=== PATIENT | female | born 1990 | race Caucasian/White ===

== ENCOUNTER 2018-05-24 06:42 | Emergency (ER) | payer OTHER ==
[~2018-05-24] VITALS: Ht 157.5 cm; Wt 52.2 kg
[2018-05-24] MEDS ORDERED: IV NORMAL SALINE 1000 ML BAG IV ONE (07:30)
[2018-05-24] MEDS ORDERED: ONDANSETRON 4 MG/2 ML VIAL IV ONE (07:30)
--- NOTE | 2018-05-24 07:30 | NUR ---
ATTEMPTED ON LT AC, UNABLE TO START HL. PT REFUSED TO HAVE MORE ATTEMPTS. NOTIFIED.
[2018-05-24] MEDS ORDERED: ONDANSETRON 4 MG/2 ML VIAL ONE (07:40)
[2018-05-24] MEDS ORDERED: ONDANSETRON 4 MG/2 ML VIAL IM ONE (07:45)
--- NOTE | 2018-05-24 08:02 | NUR ---
PT STATES FEELING BETTER.
[2018-05-24 08:30] LABS: *BILIRUBIN,URIN 1+ (NEGATIVE); *BLOOD, URINE NEGATIVE (NEGATIVE); *CLARITY,URINE CLEAR (CLEAR); *COLOR,URINE DARK YELLOW (YELLOW); *KETONES,URINE 1+ (NEGATIVE); *UROBILINOGEN,URINE 0.2 E.U./dl (NORMAL); LEUKOCYTE ESTERASE ,URINE NEGATIVE (NEGATIVE); NITRITE, URINE NEGATIVE (NEGATIVE); UGLUCOSE NEGATIVE (NEGATIVE)
[2018-05-24 08:34] LABS: BACTERIA,URINE NONE SEEN /HPF (NONE SEEN); RBC,URINE 0-3 /HPF (0-3); SQUAMOUS EPITHELIAL CELL,UR MANY /HPF (NONE SEEN); WBC,URINE 0-3 /HPF (0-3)
[2018-05-24 08:35] LABS: *URINE HCG, QUAL NEGATIVE (NEGATIVE); MUCUS,URINE FEW /LPF (0-FEW)
--- NOTE | 2018-05-24 08:42 | NUR ---
PT ABLE TO TOLORARE PO INTAKE, DENIES N/V.
[2018-05-24 10:11] VITALS: BP 112/70
--- NOTE | 2018-05-24 10:11 | NUR ---
Patient discharged to home in stable conditon. Written and verbal after care instructions given. Patient verbalizes understanding of instructions.
[2018-05-26 12:07] LABS: *GC NAA Negative (Negative); *TRIC.VAG. NAA Negative (Negative)
== END 2018-05-24 10:12 | disposition home or self-care (01) ==
LOC: ER 06:44
DX: N76.0 Acute vaginitis (principal); F17.200 Nicotine dependence, unspecified, uncomplicated; F11.10 Opioid abuse, uncomplicated; F15.10 Other stimulant abuse, uncomplicated; F14.10 Cocaine abuse, uncomplicated; Z88.2 Allergy status to sulfonamides
CPT/HCPCS: 81001; 84703; 87210; 87491; 96372; 99283; J2405; A4663; J7030

== ENCOUNTER 2018-05-28 22:09 | Emergency (ER) | payer OTHER ==
[~2018-05-28] VITALS: Ht 157.5 cm; Wt 52.2 kg
[2018-05-28] MEDS ORDERED: LOPERAMIDE HCL 2 MG CAPSULE PO ONE (23:30)
[2018-05-28] MEDS ORDERED: ONDANSETRON ODT 4 MG TAB.RAPDIS SL ONE (23:30)
[2018-05-28] MEDS ORDERED: LOPERAMIDE HCL 2 MG CAPSULE ONE (23:37)
[2018-05-28] MEDS ORDERED: ONDANSETRON ODT 4 MG TAB.RAPDIS ONE (23:37)
--- NOTE | 2018-05-28 23:44 | NUR ---
Patient discharged to home in stable conditon. Written and verbal after care instructions given. Patient verbalizes understanding of instructions. Patient ambulated with stable gait.
[2018-05-28 23:46] VITALS: BP 105/75
== END 2018-05-28 23:47 | disposition home or self-care (01) ==
LOC: ER 22:11
DX: A08.4 Viral intestinal infection, unspecified (principal); F17.200 Nicotine dependence, unspecified, uncomplicated; F11.10 Opioid abuse, uncomplicated; F14.10 Cocaine abuse, uncomplicated; F15.10 Other stimulant abuse, uncomplicated; Z88.2 Allergy status to sulfonamides; Z88.8 Allergy status to other drugs, medicaments and biological substances
CPT/HCPCS: A4663; Q0162

== ENCOUNTER 2019-01-27 06:21 | Emergency (ER) | payer OTHER ==
[~2019-01-27] VITALS: Ht 157.5 cm; Wt 52.2 kg
[2019-01-27 06:39] LABS: *BILIRUBIN,URIN NEGATIVE (NEGATIVE); *CLARITY,URINE CLOUDY (CLEAR); *COLOR,URINE YELLOW (YELLOW); *KETONES,URINE NEGATIVE (NEGATIVE); *UROBILINOGEN,URINE 0.2 E.U./dl (NORMAL); LEUKOCYTE ESTERASE ,URINE 1+ (NEGATIVE); NITRITE, URINE POSITIVE (NEGATIVE); UGLUCOSE NEGATIVE (NEGATIVE)
[2019-01-27 06:40] LABS: *BLOOD, URINE TRACE (NEGATIVE); *URINE HCG, QUAL NEGATIVE (NEGATIVE)
[2019-01-27 06:48] LABS: BACTERIA,URINE MANY /HPF (NONE SEEN); SQUAMOUS EPITHELIAL CELL,UR FEW /HPF (NONE SEEN); WBC,URINE TNTC /HPF (0-3)
[2019-01-27] MEDS ORDERED: CEphaleXIN 500 MG CAPSULE ONE (07:14)
[2019-01-27] MEDS ORDERED: ACETAMINOPHEN ES 500 MG TABLET ONE (07:14)
[2019-01-27] MEDS ORDERED: ONDANSETRON ODT 4 MG TAB.RAPDIS ONE (07:14)
[2019-01-27] MEDS ORDERED: PHENAZOPYRIDINE HCL 100 MG TABLET ONE (07:15)
[2019-01-27] MEDS: ONDANSETRON ODT 4 MG TAB.RAPDIS SL ONE (07:17)
[2019-01-27] MEDS: CEphaleXIN 500 MG CAPSULE PO ONE (07:17)
[2019-01-27] MEDS: PHENAZOPYRIDINE HCL 100 MG TABLET PO ONE (07:17)
[2019-01-27] MEDS: ACETAMINOPHEN ES 500 MG TABLET PO ONE (07:17)
[2019-01-27 07:19] VITALS: BP 121/70
--- NOTE | 2019-01-27 07:19 | NUR ---
Patient discharged to home in stable conditon. Written and verbal after care instructions given. Patient verbalizes understanding of instructions. Denies being homeless. All belongings with patient. Ambulated with stable gait.
[2019-01-27] MEDS ORDERED: MORPHINE SULFATE 4 MG/1 ML DISP.SYRIN IV ONE (07:45)
[2019-01-27] MEDS ORDERED: IV NORMAL SALINE 1000 ML BAG IV ONE (07:45)
== END 2019-01-27 07:24 | disposition home or self-care (01) ==
LOC: ER 06:24
DX: N39.0 Urinary tract infection, site not specified (principal); F17.200 Nicotine dependence, unspecified, uncomplicated; F11.10 Opioid abuse, uncomplicated; F12.10 Cannabis abuse, uncomplicated; F15.10 Other stimulant abuse, uncomplicated; Z88.2 Allergy status to sulfonamides; Z88.8 Allergy status to other drugs, medicaments and biological substances
CPT/HCPCS: 84703; 87077; 87086; A4663; A9150; Q0162

== ENCOUNTER 2019-02-19 19:52 | Emergency (ER) | payer OTHER ==
[~2019-02-19] VITALS: Ht 157.5 cm; Wt 54.4 kg
[2019-02-19 20:23] LABS: *URINE HCG, QUAL NEGATIVE (NEGATIVE)
[2019-02-19 20:29] LABS: *BILIRUBIN,URIN NEGATIVE (NEGATIVE); *BLOOD, URINE 1+ (NEGATIVE); *CLARITY,URINE CLOUDY (CLEAR); *COLOR,URINE YELLOW (YELLOW); *KETONES,URINE NEGATIVE (NEGATIVE); PH,URINE 6.5 (5.0-8.0); UGLUCOSE NEGATIVE (NEGATIVE)
[2019-02-19 20:30] LABS: LEUKOCYTE ESTERASE ,URINE 2+ (NEGATIVE); NITRITE, URINE POSITIVE (NEGATIVE); WBC,URINE 20-50 /HPF (0-3)
[2019-02-19 20:31] LABS: BACTERIA,URINE MANY /HPF (NONE SEEN); MUCUS,URINE MANY /LPF (0-FEW); SQUAMOUS EPITHELIAL CELL,UR MODERATE /HPF (NONE SEEN)
[2019-02-19] MEDS ORDERED: AZITHROMYCIN 250 MG TABLET PO ONE (21:00)
[2019-02-19] MEDS ORDERED: ONDANSETRON ODT 4 MG TAB.RAPDIS SL ONE (21:00)
[2019-02-19] MEDS ORDERED: CEFTRIAXONE 500 MG VIAL IM ONE (21:00)
[2019-02-19] MEDS ORDERED: NITROFURANTOIN/NITROFURAN MAC 100 MG CAPSULE PO ONE (21:00)
[2019-02-19] MEDS ORDERED: NITROFURANTOIN/NITROFURAN MAC 100 MG CAPSULE ONE (21:03)
[2019-02-19] MEDS ORDERED: AZITHROMYCIN 250 MG TABLET ONE (21:03)
[2019-02-19] MEDS ORDERED: CEFTRIAXONE 500 MG VIAL ONE (21:04)
[2019-02-19] MEDS ORDERED: ONDANSETRON HCL 4 MG TABLET ONE (21:04)
--- NOTE | 2019-02-19 22:37 | NUR ---
Patient discharged to home in stable conditon. Written and verbal after care instructions given. Patient verbalizes understanding of instructions. Walked out of ER with no distress noted.
[2019-02-19 22:38] VITALS: BP 115/69
--- NOTE | 2019-02-19 22:40 | NUR ---
Patient given written and verbal discharge instructions. Patient verbalizes understanding of instructions. Patient is ambulatory with steady gait. Refuses offer of [facility] placement. Patient given list of available shelters in surrounding area.
[2019-02-23 01:11] LABS: *GC NAA Negative (Negative); *TRIC.VAG. NAA Negative (Negative)
== END 2019-02-19 22:38 | disposition home or self-care (01) ==
LOC: ER 19:53
DX: N39.0 Urinary tract infection, site not specified (principal); F17.200 Nicotine dependence, unspecified, uncomplicated; F11.10 Opioid abuse, uncomplicated; F14.10 Cocaine abuse, uncomplicated; F15.10 Other stimulant abuse, uncomplicated; Z88.2 Allergy status to sulfonamides; Z88.8 Allergy status to other drugs, medicaments and biological substances
CPT/HCPCS: 81000; 81001; 84703; 87077; 87086; 87186; 87491; 96372; 99284; J0696; J3490; A4663; Q0144; Q0162

== ENCOUNTER 2019-07-15 01:29 | Emergency (ER) | payer OTHER ==
[~2019-07-15] VITALS: Ht 157.5 cm; Wt 61.2 kg
--- NOTE | 2019-07-15 02:15 | NUR ---
PATIENT WAS MSE BY DR CELIS IN ROOM 02A. PATIENT A & O X3.
[2019-07-15] MEDS ORDERED: LIDOCAINE HCL 2% 20 ML VIAL TP ONE (02:30)
--- NOTE | 2019-07-15 02:36 | NUR ---
Patient discharged to home in stable condition. Written and verbal after care instructions given. Patient verbalizes understanding of instructions. Stressed follow up or return to ER for worsening s/s.
[2019-07-15 02:38] VITALS: BP 122/78
== END 2019-07-15 03:15 | disposition home or self-care (01) ==
LOC: ER 01:33
DX: L02.413 Cutaneous abscess of right upper limb (principal); Z86.19 Personal history of other infectious and parasitic diseases; Z88.2 Allergy status to sulfonamides; F11.10 Opioid abuse, uncomplicated; F17.210 Nicotine dependence, cigarettes, uncomplicated
CPT/HCPCS: A4663

== ENCOUNTER 2019-07-16 23:35 | Emergency (ER) | payer OTHER ==
[~2019-07-16] VITALS: Ht 157.5 cm; Wt 61.2 kg
--- NOTE | 2019-07-16 23:38 | NUR ---
Patient ambulated to ER with steady, awake alert and fully oriented. Brought herself to ER for wound check. Pt came in two days ago for R arm abscess, which was drained and packed per patient reports. No other issues. Not in any active distress.
--- NOTE | 2019-07-16 23:40 | NUR ---
Dr. Staley saw patient for MSE and performed bedside wound treatment. No profused bleeding nor signs of infection noted. Pt verbalized feeling comfortable during treatment process, tolerated well.
[2019-07-17 00:11] VITALS: BP 120/70
== END 2019-07-17 00:12 | disposition home or self-care (01) ==
LOC: ER 23:37
DX: Z48.817 Encounter for surgical aftercare following surgery on the skin and subcutaneous tissue (principal); L02.413 Cutaneous abscess of right upper limb; F17.210 Nicotine dependence, cigarettes, uncomplicated; F11.10 Opioid abuse, uncomplicated; F15.10 Other stimulant abuse, uncomplicated; Z86.19 Personal history of other infectious and parasitic diseases
CPT/HCPCS: A4663

== ENCOUNTER 2019-07-19 06:49 | Emergency (ER) | payer OTHER ==
[~2019-07-19] VITALS: Ht 157.5 cm; Wt 61.2 kg
== END 2019-07-19 07:26 | disposition home or self-care (01) ==
LOC: ER 06:53
DX: Z48.817 Encounter for surgical aftercare following surgery on the skin and subcutaneous tissue (principal); L02.413 Cutaneous abscess of right upper limb; F17.210 Nicotine dependence, cigarettes, uncomplicated; Z86.19 Personal history of other infectious and parasitic diseases; Z88.2 Allergy status to sulfonamides
CPT/HCPCS: A4663

== ENCOUNTER 2019-07-26 01:17 | Emergency (ER) | payer OTHER ==
[~2019-07-26] VITALS: Ht 157.5 cm; Wt 61.2 kg
--- NOTE | 2019-07-26 01:29 | NUR ---
Dr. Mike at bedside for MSE
[2019-07-26] MEDS ORDERED: POTASSIUM CHLORIDE 20 MEQ TAB.PRT.SR ONE (01:56)
[2019-07-26] MEDS ORDERED: FUROSEMIDE 20 MG TABLET ONE (01:56)
--- NOTE | 2019-07-26 01:58 | NUR ---
Patient discharged to home in stable condition. Written and verbal after care instructions given. Patient verbalizes understanding of instructions. Stressed follow up or return to ER for worsening s/s. Patient ambulating with steady gait
[2019-07-26] MEDS ORDERED: FUROSEMIDE 20 MG TABLET PO ONE (02:00)
[2019-07-26] MEDS ORDERED: POTASSIUM CHLORIDE 20 MEQ TAB.PRT.SR PO ONE (02:00)
[2019-07-26 02:04] VITALS: BP 142/73
== END 2019-07-26 01:58 | disposition home or self-care (01) ==
LOC: ER 01:19
DX: R60.0 Localized edema (principal); F11.20 Opioid dependence, uncomplicated; F15.20 Other stimulant dependence, uncomplicated; F17.210 Nicotine dependence, cigarettes, uncomplicated; Z86.19 Personal history of other infectious and parasitic diseases
CPT/HCPCS: A4663

== ENCOUNTER 2019-11-13 05:45 | Emergency (ER) | payer OTHER ==
[~2019-11-13] VITALS: Ht 165.1 cm; Wt 68.0 kg
--- NOTE | 2019-11-13 06:00 | NUR ---
Dr. Mike at bedside for MSE.
[2019-11-13] MEDS ORDERED: ONDANSETRON ODT 4 MG TAB.RAPDIS ONE (06:11)
[2019-11-13] MEDS ORDERED: HYDROMORPHONE HCL 2 MG TABLET ONE (06:11)
[2019-11-13] MEDS ORDERED: PENICILLIN V POTASSIUM 500 MG TABLET ONE (06:11)
[2019-11-13] MEDS ORDERED: PENICILLIN V POTASSIUM 500 MG TABLET PO ONE (06:15)
[2019-11-13] MEDS ORDERED: HYDROMORPHONE HCL 2 MG TABLET PO ONE (06:15)
[2019-11-13] MEDS ORDERED: ONDANSETRON ODT 4 MG TAB.RAPDIS SL ONE (06:15)
--- NOTE | 2019-11-13 06:20 | NUR ---
Patient given written and verbal discharge instructions. Patient verbalizes understanding of instructions. Patient given list of available shelters in surrounding area. Refuses offer of prison placement and all other resources. Instructed not to drivem, verbalized understanding. Patient cleared for discharge and left ER ambulatory with steady gait.
[2019-11-13 06:21] VITALS: BP 140/75
== END 2019-11-13 06:22 | disposition home or self-care (01) ==
LOC: ER 05:47
DX: K08.89 Other specified disorders of teeth and supporting structures (principal); F17.210 Nicotine dependence, cigarettes, uncomplicated; Z86.19 Personal history of other infectious and parasitic diseases; Z88.1 Allergy status to other antibiotic agents; Z88.2 Allergy status to sulfonamides
CPT/HCPCS: A4663; Q0162

== ENCOUNTER 2020-11-26 01:28 | Emergency (ER) | payer OTHER ==
[~2020-11-26] VITALS: Ht 157.5 cm; Wt 58.5 kg
[2020-11-26] MEDS ORDERED: LORAZEPAM 0.5 MG TABLET PO ONE (03:00)
[2020-11-26] MEDS ORDERED: HYDROMORPHONE 1 MG/1 ML DISP.SYRIN IM ONE (03:00)
[2020-11-26] MEDS ORDERED: CEFTRIAXONE 1 G VIAL IM ONE (03:00)
[2020-11-26] MEDS ORDERED: CLINDAMYCIN HCL 150 MG CAPSULE PO ONE (03:00)
--- NOTE | 2020-11-26 03:00 | NUR ---
Pt here for L breast abcess and Rt thigh abcess starting 1 week ago. Pt is afebrile. Denies other symptoms.
[2020-11-26] MEDS ORDERED: CLINDAMYCIN HCL 150 MG CAPSULE ONE (03:08)
[2020-11-26] MEDS ORDERED: CEFTRIAXONE 1 G VIAL ONE (03:09)
[2020-11-26] MEDS ORDERED: HYDROMORPHONE 2 MG/1 ML DISP.SYRIN ONE (03:09)
[2020-11-26] MEDS ORDERED: LORAZEPAM 1 MG TABLET ONE (03:09)
[2020-11-26] MEDS ORDERED: LIDOCAINE HCL 1% 20 ML VIAL ONE (03:11)
--- NOTE | 2020-11-26 03:44 | NUR ---
Per Dr. Mike pt. requires higher level of care, plastic surgery consult for left breast abscess. Currently waiting back to hear from pts. medical case manager of pts. insurance to determine where she can be transferred.
[2020-11-26] MEDS ORDERED: HYDR-3980 PO (05:38)
[2020-11-26] MEDS ORDERED: CLIN300C12 PO (05:38)
--- NOTE | 2020-11-26 06:31 | NUR ---
Pt watching television. Vss. No signs of distress. No new symptoms. Will continue to monitor.
--- NOTE | 2020-11-26 07:10 | NUR ---
web content writer came in for morning rounds. Patient does not wish to proceed with medical care recommended by Dr. Mike. Patient given information related to possible complications, up to and including , which could occur as a result of leaving the hospital at this time. Patient verbalizes understanding of risks involved due to leaving against medical advice. Patient has signed AMA form.
[2020-11-26 07:24] VITALS: BP 112/81
== END 2020-11-26 07:15 | disposition left against medical advice (07) ==
LOC: ER 01:30
DX: L02.415 Cutaneous abscess of right lower limb (principal); N61.1 Abscess of the breast and nipple; Z53.29 Procedure and treatment not carried out because of patient's decision for other reasons; Z88.1 Allergy status to other antibiotic agents; F17.210 Nicotine dependence, cigarettes, uncomplicated; Z86.19 Personal history of other infectious and parasitic diseases; F15.10 Other stimulant abuse, uncomplicated
CPT/HCPCS: 10061; 96372; 99284; 99406; J0696; J1170; J3490

== ENCOUNTER 2022-05-23 01:06 | Emergency (ER) | payer OTHER ==
[~2022-05-23] VITALS: Ht 157.5 cm; Wt 61.2 kg
[~2022-05-23 01:06] MED LIST: CLIN300C12 PO; HYDR-3980 PO
--- NOTE | 2022-05-23 01:55 | NUR ---
Patient was called to be triaged but was not present in the waiting room.
--- NOTE | 2022-05-23 05:30 | NUR ---
Patient walked into ER c/o diarrhea and N/V for 3 days.
--- NOTE | 2022-05-23 05:34 | NUR ---
Dr. Finnegan at bedside for MSE.
[2022-05-23] MEDS ORDERED: ONDANSETRON 4 MG/2 ML VIAL ONE (05:40)
[2022-05-23] MEDS ORDERED: DIPHENOXYLATE HCL/ATROP SULF TABLET ONE (05:41)
[2022-05-23] MEDS ORDERED: IV NORMAL SALINE 1000 ML BAG IV ONE (05:45)
[2022-05-23] MEDS ORDERED: ONDANSETRON 4 MG/2 ML VIAL IV ONE (05:45)
[2022-05-23] MEDS ORDERED: IV NS 1000 ML 1,000 ML IV ONE (05:45)
[2022-05-23] MEDS ORDERED: DIPHENOXYLATE HCL/ATROP SULF TABLET PO ONE (05:45)
[2022-05-23 07:02] LABS: HEMATOCRIT 32.5 % (31.2-41.9); MEAN CORPUSCULAR HEMOGLOBIN 28.7 uug (24.7-32.8); MEAN CORPUSCULAR VOLUME 83.7 fL (75.5-95.3); PLATELET COUNT (AUTO) 212 K/uL (179-408)
[2022-05-23 07:32] LABS: ALANINE AMINOTRANSFERASE 36 U/L (14-59); ALKALINE PHOSPHATASE 79 U/L (50-136); ASPARTATE AMINOTRANSFERASE 19 U/L (15-37); BILIRUBIN,DIRECT 0.1 mg/dL (0.0-0.2); BILIRUBIN,TOTAL 0.5 mg/dL (0.2-1.0); CARBON DIOXIDE 29 mmol/L (21-32); CHLORIDE 105 mmol/L (98-107); CREATININE 0.4 mg/dL (0.6-1.3); GLUCOSE 89 mg/dL (74-106); LIPASE 37 U/L (73-393); POTASSIUM 3.3 mmol/L (3.5-5.1); TOTAL PROTEIN, SERUM 6.1 g/dL (6.4-8.2); UREA NITROGEN, BLOOD 14 mg/dL (7-18)
--- NOTE | 2022-05-23 08:20 | NUR ---
Pt was able to pass PO challange.
[2022-05-23] MEDS ORDERED: POTASSIUM CHLORIDE 20 MEQ TAB.PRT.SR PO ONE (08:30)
[2022-05-23] MEDS ORDERED: POTASSIUM CHLORIDE 20 MEQ TAB.PRT.SR ONE (08:34)
--- NOTE | 2022-05-23 09:13 | NUR ---
IV removed. Catheter intact and site benign. Pressure and 4x4 gauze applied to site. No bleeding noted.
[2022-05-23 09:14] VITALS: BP 117/70
== END 2022-05-23 09:21 | disposition home or self-care (01) ==
LOC: ER 01:17
DX: R10.84 Generalized abdominal pain (principal); R11.10 Vomiting, unspecified; R19.7 Diarrhea, unspecified; E87.6 Hypokalemia; F19.10 Other psychoactive substance abuse, uncomplicated; Z88.1 Allergy status to other antibiotic agents; Z88.2 Allergy status to sulfonamides; Z86.19 Personal history of other infectious and parasitic diseases; Z87.440 Personal history of urinary (tract) infections
CPT/HCPCS: 99284; 96374; 96361; 80076; 80048; 83690; 85025; 84702; 36415; J2405; J7040; A4663